=== PATIENT | male | born 1985 | race Caucasian/White ===

== ENCOUNTER 2016-10-05 07:37 | Emergency (ER) | payer MEDICARE ==
--- NOTE | ~2016-10-05 | EKG ---
PATIENT: TAQUERIA HIGH UNIT #: [id number] Ventricular Rate: 110 BPM Atrial Rate: 110 BPM P-R Interval: 118 ms QRS Duration: 88 ms Q-T Interval: 342 ms QTC Calculation(Bezet): 462 ms P [place]: 86 degrees Calculated R [place]: 101 degrees Calculated T [place]: 30 degrees Diagnosis Line: Sinus tachycardia Diagnosis Line: Right atrial enlargement Diagnosis Line: Rightward axis Diagnosis Line: Pulmonary disease pattern Diagnosis Line: T wave abnormality, consider inferior ischemia Diagnosis Line: Abnormal ECG Diagnosis Line: When compared with ECG of 11-SEP-2016 22:31, Diagnosis Line: T wave inversion now evident in Inferior leads Diagnosis Line: Confirmed by ADRIEL TORRES MD ([id number]) on Diagnosis Line: 10/06/2016 12:05:43 AM INTERPRETING MD: MELISSA JUDGE
--- NOTE | ~2016-10-05 | CR71 ---
[facility] A Service of [facility] RADIOLOGY TEXT RESULTS PATIENT: TAQUERIA HIGH LOCATION: [facility] : 85 UNIT #: [id number] AGE: [address]: Wander Low MD SEX: M ORDER DR: [id number] [facility]. [place], [place] [address] [id number] MR#: [id number] Acc #: [id number] NAME: TAQUERIA HIGH : 1985 SEX: M STUDY DATE/TIME: 10/05/2016 7:33 UNIT: [facility] ROOM: STUDY DESCRIPTION: CR Chest Single View Attending Physician: Wander Low M.D. Ordering Physician: Wander Low M.D. Primary Care Physician: Geoffrey Ramires M.D. MEDICAL IMAGING REPORT This report is preliminary unless electronic signature is present EXAM Frontal chest, 10/05/2016. HISTORY Short of air, abdominal pain, symptoms a week. History of cystic fibrosis, diabetes. TECHNIQUE Frontal chest was performed. COMPARISON STUDIES 09/13/2016 FINDINGS Cardiac silhouette within normal limits. Vascularity is unremarkable. There is redemonstration of imaging features most characteristics of reported history of cystic fibrosis in both lungs with areas of bronchiectasis, bronchial wall thickening, and fibrotic change in both lungs, with a mid and upper lung zone predominance bilaterally. There is no new effusion, pneumothorax, or dense consolidation. IMPRESSION Imaging features most characteristic of reported history of cystic fibrosis. No superimposed active disease or significant change for technical factors from 09/13/2016. Dictated by... Neeraj Chandler M.D. THIS IS AN ELECTRONICALLY VERIFIED REPORT Neeraj Chandler M.D. at 10/05/2016 3:00 PM [facility] A Service [facility] RADIOLOGY TEXT RESULTS PATIENT: TAQUERIA HIGH LOCATION: [facility] : 85 UNIT #: [id number] AGE: [address]: Wander Low MD SEX: M ORDER DR: PRATIBHA/liz TD: 10/05/2016 14:01 JOB #: [id number] MEDICAL IMAGING REPORT COPY
[~2016-10-05 07:37] MED LIST: ACETAMINOPHEN325 MG PO; AL-MAG HYDROX-S30 M1 PO; ALBUTEROL INH; ALBUTEROL MININEB NEB; ALBUTEROL17 GM INH; AMOXICILLIN PO; ANTI-DIARRHEAL2 M1 PO; BACTRIM DS TABL1 TA1 PO; BENTYL10 M1 PO; BIAXIN PO; CLINDAMYCIN HC300 MG PO; CLONIDINE HCL0.1 MG PO; CREON 101 CA1; CREON 101 CA1 PO; CREON DR 12,001 EAC1 PO; CREON DR 24,001 EACH PO; CREON DR 6,0001 EACH PO; CREON PO; DAKIN'S MODIF1000 ML EXT; DIGESTIVE PROB250 MG PO; DOCUSATE SODIU100 MG PO; DOXYCYCLINE MO100 MG PO; DULERA 200 MCG/13 GM INH; ERYTHROMYCIN F PO; FLORASTOR250 M1 PO; GABAPENTIN800 MG PO; GUAIFENESIN600 M1 PO; HYDROCODON-ACE1 EAC9 PO; IBUPROFEN400 MG PO; LANTUS; LANTUS100 U/ML; LANTUS100 UNITS/ SUBQ; LEVAQUIN750 MG PO; LEVEMIR SUBQ; LEVEMIR100 UNITS/ SUBQ; LIBRIUM PO; LIBRIUM25 M1 PO; METOPROLOL TAR25 MG PO; MILK OF MAGNESIA PO; MULTI VITAMIN1 EACH PO; NEURONTIN PO; NEURONTIN300 MG PO; NEURONTIN800 MG PO; NEXIUM; NEXIUM PO; NICOTINE TRANSD14 MG EXT; NOVALOG; NOVOLIN R100 UNITS/ SUBQ; NOVOLOG SUBQ; NOVOLOG100 U/ML; NOVOLOG100 U/ML SUBQ; NYSTATIN5 ML PO; OMEPRAZOLE40 MG PO; OMNICEF300 MG PO; PANCREASE PO; PANCRELIPASE 51 EACH PO; PEPCID AC20 M2 PO; PHENERGAN25 M1 PO; PHENERGAN25 MG/M1 IM; PROBIOTIC1 EAC1 PO; PROTONIX IV; PROTONIX PO; REMERON15 MG PO; REQUIP0.5 MG PO; ROXICODONE5 MG PO; SALINE NEB; SEROQUEL50 M1 PO; SYMBICORT; SYMBICORT INH; TESSALON PERLE100 M1 PO; VANCOMYCIN1.5 GM/252 IV; VISTARIL PO; VISTARIL50 MG PO; ZENPEP DR 25,01 EACH PO; ZYVOX PO; [UNRECOGNIZED DRUG - OTHER]
[2016-10-05 07:47] LABS: ARTERIAL BLD GAS O2 SATURATION 49.5 % (90.0-100.0); ARTERIAL BLOOD GAS CARBOXY HB 1.3 %sat (0.0-9.0); ARTERIAL BLOOD GAS HCO3 40.5 mmol/L; ARTERIAL BLOOD GAS MET HB 0.8 %sat (0.0-2.0); ARTERIAL BLOOD GAS pH 7.447 (7.350-7.450)
[2016-10-05 07:48] LABS: ARTERIAL BLOOD GAS PCO2 58.7 mmHg (35.0-45.0); ARTERIAL BLOOD GAS PO2 27.5 mmHg (80.0-100); ARTERIAL DRAW? NO
[2016-10-05 07:49] LABS: ARTERIAL BLOOD GAS ART SITE RIGHT BRACHIAL; ARTERIAL BLOOD GAS DELIVERY VENOUS SAMPLE FOR PH
[2016-10-05 08:07] LABS: POC - CKMB 1.9 ng/mL (0.0-7.9); POC - TROPONIN <0.05 ng/mL (<=0.05)
[2016-10-05 08:28] LABS: BASOPHIL# 0.1 X10e3 (0-0.3); BASOPHIL% 0.3 % (0-2.5); DIFF IND YES; EOSINOPHIL% 0.1 % (0.0-7.0); HEMATOCRIT 39.1 % (38.0-50.0); HEMOGLOBIN 12.6 gm/dL (13.0-16.0); LYMPHOCYTE# 1.5 X10e3 (1.0-3.5); LYMPHOCYTE% 8.2 % (17.0-45.0); MEAN CELL VOLUME 80.5 FL (83-96); MEAN CORPUSCULAR HEMOGLOBIN 25.9 PG (28-34); MEAN CORPUSCULAR HGB CONC 32.2 g/dL (30-36); MEAN PLATELET VOLUME 7.2 FL (6.5-11.5); MONOCYTE# 0.9 X10e3 (0-1.0); NEUTROPHIL# 16.2 X10e3 (1.5-7.1); NEUTROPHIL% 86.4 % (40-75); PLATELET COUNT 800 X10e3 (140-420); RED BLOOD COUNT 4.86 X10e (3.90-5.60); RED CELL DISTRIBUTION WIDTH 17.6 % (11.0-15.5); WHITE BLOOD COUNT 18.8 X10e3 (4.0-10.5)
[2016-10-05 08:58] LABS: ANISOCYTOSIS SL; HYPOCHROMIA SL; MICROCYTOSIS SL; PLATELET ESTIMATE INCREASED (NORMAL)
[2016-10-05 09:02] LABS: ALBUMIN SERUM 2.1 g/dL (3.5-5.0); ALKALINE PHOSPHATASE 342 U/L (32-92); ALT (SGPT) 24 U/L (10-40); AST (SGOT) 18 U/L (10-42); BETA HYDROXYBUTYRATE 0.04 MMOL/L (0.02-0.27); BILIRUBIN, DIRECT 0.1 mg/dL (0.0-0.2); BILIRUBIN,INDIRECT 0.2 mg/dL (0.0-0.9); BILIRUBIN,TOTAL 0.3 mg/dL (0.2-2.0); CARBON DIOXIDE 36 mmol/L (22-31); CHLORIDE 85 mmol/L (100-111); CREATININE SERUM 0.4 mg/dL (0.6-1.4); GLOM FILT RATE Estimated ABOVE60 mL/min (>60); GLUCOSE FASTING 347 mg/dL (70-110); LIPASE 11 U/L (22-51); PROTEIN TOTAL SERUM 7.6 g/dL (6.0-8.3); SODIUM 131 mmol/L (135-145)
[2016-10-05 09:03] LABS: BLOOD UREA NITROGEN <5 mg/dL (9-23)
[2016-10-05 09:06] LABS: AMYLASE 2 U/L (0-46); POTASSIUM 2.8 mmol/L (3.5-5.1)
== END 2016-10-05 12:06 | disposition home or self-care (01) ==
LOC: CED 07:37
PROVIDERS: Emergency Medicine
DX: E87.6 Hypokalemia (principal); R73.9 Hyperglycemia, unspecified; E11.65 Type 2 diabetes mellitus with hyperglycemia; Z88.5 Allergy status to narcotic agent; Z88.1 Allergy status to other antibiotic agents; Z88.6 Allergy status to analgesic agent; Z79.4 Long term (current) use of insulin; Z79.899 Other long term (current) drug therapy
CPT/HCPCS: 36415; 71010; 80048; 80076; 82010; 82150; 82553; 82803; 82947; 83605; 83690; 83735; 84484; 85025; 87040; 93005; 96361; 96374; 96375; 96376; 99284; J1170; J2405; J2550

== ENCOUNTER 2017-02-28 13:31 | Emergency (ER) | payer MEDICARE | END 2017-02-28 13:35 | disposition left against medical advice (07) | LOC: CED 13:31 | DX: Z53.21 Procedure and treatment not carried out due to patient leaving prior to being seen by health care provider (principal) ==